=== PATIENT | male | born 1960 | race African-American/Black ===

== ENCOUNTER 2016-09-16 15:58 | Emergency (ER) | payer OTHER ==
[~2016-09-16] VITALS: Ht 175.3 cm; Wt 87.0 kg
[~2016-09-16 15:58] MED LIST: LISI-661 PO; METF500T4 PO; TAMS0.4C32 PO
[2016-09-16 16:37] LABS: GLUCOSE,POINT OF CARE 116 MG/DL (70-110)
[2016-09-16 18:55] VITALS: BP 148/84
[2016-09-16] MEDS ORDERED: IBUPROFEN 800 MG TABLET PO ONE (19:00)
== END 2016-09-16 20:00 | disposition home or self-care (01) ==
LOC: EMS 16:00
DX: R35.0 Frequency of micturition (principal); R52 Pain, unspecified; E11.9 Type 2 diabetes mellitus without complications; I10 Essential (primary) hypertension
CPT/HCPCS: 82962; 99283

== ENCOUNTER 2017-02-03 14:07 | Emergency (ER) | payer OTHER ==
[~2017-02-03] VITALS: Ht 175.3 cm; Wt 87.7 kg
[2017-02-03 14:17] LABS: GLUCOSE,POINT OF CARE 177 MG/DL (70-110)
[2017-02-03 14:52] LABS: APPEARANCE,URINE CLEAR (CLEAR); GLUCOSE, URINE (UA) NEGATIVE (NEGATIVE); KETONES,URINE NEGATIVE (NEGATIVE); LEUKOCYTE ESTERASE ,URINE NEGATIVE (NEGATIVE); OCCULT BLOOD,URINE NEGATIVE (NEGATIVE); PROTEIN,URINE NEGATIVE (NEGATIVE)
[2017-02-03 14:53] LABS: ADD UA MICROSCOPIC NO
[2017-02-03 16:18] VITALS: BP 134/84
== END 2017-02-03 16:19 | disposition home or self-care (01) ==
LOC: EMS 14:08
DX: R30.0 Dysuria (principal); R35.0 Frequency of micturition; I10 Essential (primary) hypertension; E11.9 Type 2 diabetes mellitus without complications
CPT/HCPCS: 82962; 99283

== ENCOUNTER 2017-06-10 13:58 | Emergency (ER) | payer OTHER ==
[~2017-06-10] VITALS: Ht 175.3 cm; Wt 88.6 kg
[~2017-06-10 13:58] MED LIST changes: -LISI-661 PO; -TAMS0.4C32 PO
[2017-06-10 14:33] LABS: GLUCOSE,POINT OF CARE 81 MG/DL (70-110)
[2017-06-10 16:31] LABS: APPEARANCE,URINE CLEAR (CLEAR); GLUCOSE, URINE (UA) NEGATIVE (NEGATIVE); KETONES,URINE NEGATIVE (NEGATIVE); LEUKOCYTE ESTERASE ,URINE NEGATIVE (NEGATIVE); OCCULT BLOOD,URINE NEGATIVE (NEGATIVE); PH,URINE 6.5 (5.0-8.0); PROTEIN,URINE NEGATIVE (NEGATIVE)
[2017-06-10 16:41] LABS: SQUAMOUS EPITHELIAL CELL,UR Few /LPF (None Seen)
[2017-06-10 16:42] LABS: RBC,URINE 0-2 /HPF (0-2); WBC,URINE 0-2 /HPF (0-5)
[2017-06-10 18:08] VITALS: BP 141/81
== END 2017-06-10 18:13 | disposition home or self-care (01) ==
LOC: EMS 13:58
DX: R10.30 Lower abdominal pain, unspecified (principal); R33.8 Other retention of urine; E11.9 Type 2 diabetes mellitus without complications; I10 Essential (primary) hypertension; N40.1 Benign prostatic hyperplasia with lower urinary tract symptoms
CPT/HCPCS: 82962; 99283

== ENCOUNTER 2017-09-01 17:14 | Emergency (ER) | payer OTHER ==
[~2017-09-01] VITALS: Ht 175.3 cm; Wt 86.4 kg
[2017-09-01] MEDS ORDERED: IBUP-2071 PO (17:24)
[2017-09-01 17:32] LABS: GLUCOSE,POINT OF CARE 107 MG/DL (70-110)
[2017-09-01 18:46] LABS: INFLUENZA TYPE A NEGATIVE FOR TYPE A (NEGATIVE); INFLUENZA TYPE B NEGATIVE FOR TYPE B (NEGATIVE)
[2017-09-01 20:08] LABS: GLUCOSE,POINT OF CARE 113 MG/DL (70-110)
[2017-09-01] MEDS ORDERED: ALBUTEROL SULFATE HFA 90 MCG/PUFF 8 GM INHALER IH ONE (20:15)
[2017-09-01 20:18] VITALS: BP 114/69
== END 2017-09-01 20:47 | disposition home or self-care (01) ==
LOC: EMS 17:16
DX: R05 Cough (principal); R51 Headache; F17.210 Nicotine dependence, cigarettes, uncomplicated; E11.9 Type 2 diabetes mellitus without complications; I10 Essential (primary) hypertension; F12.90 Cannabis use, unspecified, uncomplicated; Z76.0 Encounter for issue of repeat prescription
CPT/HCPCS: 71046; 82962; 87804; 94640; 99285; 99406; J3535

== ENCOUNTER 2017-11-28 17:13 | Emergency (ER) | payer OTHER ==
[~2017-11-28] VITALS: Ht 175.3 cm; Wt 87.7 kg
[~2017-11-28 17:13] MED LIST changes: +IBUP-2071 PO; -METF500T4 PO; +METF500T6 PO
[2017-11-28] MEDS ORDERED: LISI-661 PO (17:23)
[2017-11-28] MEDS ORDERED: SIMV-259 PO (17:23)
[2017-11-28] MEDS ORDERED: SULF1TAB42 PO (17:23)
[2017-11-28] MEDS ORDERED: TAMS0.4C32 PO (17:23)
[2017-11-28 17:27] LABS: GLUCOSE,POINT OF CARE 134 MG/DL (70-110)
[2017-11-28] MEDS ORDERED: MUPIROCIN CALCIUM 2% 15 GM CREAM TP ONE (18:45)
[2017-11-28] MEDS ORDERED: FLUCONAZOLE 150 MG TABLET PO ONE (18:45)
[2017-11-28 19:25] VITALS: BP 141/85
== END 2017-11-28 19:37 | disposition home or self-care (01) ==
LOC: EMS 17:14
DX: N48.1 Balanitis (principal); E11.9 Type 2 diabetes mellitus without complications; I10 Essential (primary) hypertension; G89.29 Other chronic pain; F17.210 Nicotine dependence, cigarettes, uncomplicated; F12.90 Cannabis use, unspecified, uncomplicated
CPT/HCPCS: 82962; 99283

== ENCOUNTER 2018-02-21 17:10 | Emergency (ER) | payer OTHER ==
[~2018-02-21] VITALS: Ht 175.3 cm; Wt 88.6 kg
[~2018-02-21 17:10] MED LIST changes: -IBUP-2071 PO; +LISI-661 PO; +SIMV-259 PO; +SULF1TAB42 PO; +TAMS0.4C32 PO
[2018-02-21 17:53] LABS: APPEARANCE,URINE CLEAR (CLEAR); BILIRUBIN,URINE NEGATIVE (NEGATIVE); GLUCOSE, URINE (UA) NEGATIVE (NEGATIVE); KETONES,URINE NEGATIVE (NEGATIVE); LEUKOCYTE ESTERASE ,URINE NEGATIVE (NEGATIVE); NITRATE,URINE NEGATIVE (NEGATIVE); OCCULT BLOOD,URINE NEGATIVE (NEGATIVE); PH,URINE 5.5 (5.0-8.0); PROTEIN,URINE NEGATIVE (NEGATIVE); UROBILINOGEN,URINE 0.2 mg/dL (<=1.0)
[2018-02-21] MEDS ORDERED: AZITHROMYCIN 250 MG TABLET PO ONE (18:30)
[2018-02-21] MEDS ORDERED: LIDOCAINE HCL/PF 1% 2 ML VIAL IM ONE (18:30)
[2018-02-21] MEDS ORDERED: ACETAMINOPHEN 500 MG TABLET PO ONE (18:30)
[2018-02-21] MEDS ORDERED: CefTRIAXone SODIUM 1 GM/VIAL IM ONE (18:30)
[2018-02-21 19:34] VITALS: BP 144/84
== END 2018-02-21 19:40 | disposition home or self-care (01) ==
LOC: EMS 17:12
DX: R35.0 Frequency of micturition (principal); R30.0 Dysuria; E11.9 Type 2 diabetes mellitus without complications; I10 Essential (primary) hypertension; F12.90 Cannabis use, unspecified, uncomplicated; G89.29 Other chronic pain; F17.210 Nicotine dependence, cigarettes, uncomplicated
CPT/HCPCS: 81003; 96372; 99283; 99406; J0696; J3490

== ENCOUNTER 2018-10-15 19:41 | Emergency (ER) | payer SELFPAY ==
[~2018-10-15] VITALS: Ht 170.2 cm; Wt 90.9 kg
[~2018-10-15 19:41] MED LIST changes: +METF-960 PO; -METF500T6 PO
[2018-10-15] MEDS ORDERED: ASPI-1182 PO (20:01)
[2018-10-15 20:08] LABS: GLUCOSE,POINT OF CARE 94 MG/DL (70-110)
[2018-10-15 21:14] LABS: APPEARANCE,URINE CLEAR (CLEAR); BILIRUBIN,URINE NEGATIVE (NEGATIVE); GLUCOSE, URINE (UA) NEGATIVE (NEGATIVE); KETONES,URINE NEGATIVE (NEGATIVE); LEUKOCYTE ESTERASE ,URINE NEGATIVE (NEGATIVE); NITRATE,URINE NEGATIVE (NEGATIVE); OCCULT BLOOD,URINE NEGATIVE (NEGATIVE); PROTEIN,URINE NEGATIVE (NEGATIVE)
[2018-10-15 21:18] LABS: BACTERIA,URINE None Seen /HPF (None Seen); RBC,URINE 0-2 /HPF (0-2); SQUAMOUS EPITHELIAL CELL,UR Rare /LPF (None Seen); WBC,URINE 0-2 /HPF (0-5)
[2018-10-15 22:00] VITALS: BP 131/77
== END 2018-10-15 22:31 | disposition home or self-care (01) ==
LOC: EMS 19:54
DX: R35.0 Frequency of micturition (principal); I10 Essential (primary) hypertension; E11.9 Type 2 diabetes mellitus without complications; F12.90 Cannabis use, unspecified, uncomplicated; F17.210 Nicotine dependence, cigarettes, uncomplicated; Z79.84 Long term (current) use of oral hypoglycemic drugs; Z79.82 Long term (current) use of aspirin

== ENCOUNTER 2018-10-20 20:49 | Emergency (ER) | payer SELFPAY ==
[~2018-10-20] VITALS: Ht 170.2 cm; Wt 89.1 kg
[~2018-10-20 20:49] MED LIST changes: +ASPI-1182 PO; -SULF1TAB42 PO
[2018-10-20 21:19] LABS: GLUCOSE,POINT OF CARE 173 MG/DL (70-110)
[2018-10-20 23:29] LABS: APPEARANCE,URINE CLEAR (CLEAR); BILIRUBIN,URINE NEGATIVE (NEGATIVE); GLUCOSE, URINE (UA) NEGATIVE (NEGATIVE); KETONES,URINE NEGATIVE (NEGATIVE); LEUKOCYTE ESTERASE ,URINE NEGATIVE (NEGATIVE); NITRATE,URINE NEGATIVE (NEGATIVE); OCCULT BLOOD,URINE TRACE (NEGATIVE); PH,URINE 5.5 (5.0-8.0); PROTEIN,URINE NEGATIVE (NEGATIVE); UROBILINOGEN,URINE 0.2 mg/dL (<=1.0)
[2018-10-20 23:43] LABS: BACTERIA,URINE Rare /HPF (None Seen); SQUAMOUS EPITHELIAL CELL,UR Rare /LPF (None Seen); WBC,URINE 0-2 /HPF (0-5)
[2018-10-21 00:31] VITALS: BP 119/75
== END 2018-10-21 01:00 | disposition home or self-care (01) ==
LOC: EMS 20:51
DX: N40.1 Benign prostatic hyperplasia with lower urinary tract symptoms (principal); R33.8 Other retention of urine; N13.8 Other obstructive and reflux uropathy; E11.9 Type 2 diabetes mellitus without complications; I10 Essential (primary) hypertension; F17.210 Nicotine dependence, cigarettes, uncomplicated; F12.90 Cannabis use, unspecified, uncomplicated; Z79.84 Long term (current) use of oral hypoglycemic drugs; Z79.899 Other long term (current) drug therapy
CPT/HCPCS: 51702; 99406

== ENCOUNTER 2019-03-31 20:40 | Emergency (ER) | payer MEDICAID ==
[~2019-03-31] VITALS: Ht 175.3 cm; Wt 89.1 kg
[2019-03-31 21:38] LABS: GLUCOSE,POINT OF CARE 282 MG/DL (70-110)
[2019-03-31 21:49] LABS: BASOPHILS % (AUTO) 0.5 % (0.0-2.0); EOSINOPHILS % (AUTO) 3.2 % (1.0-6.0); HEMATOCRIT 43.9 % (41-53); HEMOGLOBIN 13.8 g/dL (13.5-17.5); LYMPHOCYTES % (AUTO) 33.5 % (22.0-44.0); MEAN CORPUSCULAR HEMOGLOBIN 27.7 pg (26.0-34.0); MEAN CORPUSCULAR HGB CONC 31.5 G/dL (31.0-37.0); MEAN CORPUSCULAR VOLUME 88 fL (80-100); MONOCYTES # (AUTO) 0.6 K/uL (0.1-1.0); MONOCYTES % (AUTO) 10.7 % (2.0-9.0); NEUTROPHILS # (AUTO) 3.1 K/uL (1.8-7.7); NEUTROPHILS % (AUTO) 52.1 % (40.0-70.0); PLATELET COUNT (AUTO) 210 K/uL (150-450); RED BLOOD CELL COUNT(AUTO) 4.98 MIL/uL (4.50-5.90); RED CELL DISTRIBUTION WIDTH 14.1 % (11.5-14.5)
[2019-03-31 22:13] LABS: ANION GAP 8 mmol/L (8-16); CALCIUM, TOTAL 9.4 mg/dL (8.8-10.5); CARBON DIOXIDE 25 mmol/L (22-29); CHLORIDE 104 mmol/L (98-107); CREATININE 0.92 mg/dL (0.60-1.30); GLOMERULAR FILTR. RATE CALC > 60 mL/min (>60); GLUCOSE,RANDOM 284 mg/dL (70-110); POTASSIUM 3.8 mmol/L (3.5-5.1); SODIUM SERUM 137 mmol/L (136-145); UREA NITROGEN, BLOOD 16 mg/dL (7-18)
[2019-03-31 22:15] LABS: LACTIC ACID 1.9 mmol/L (0.4-2.0)
[2019-03-31 22:20] LABS: ALANINE AMINOTRANSFERASE 34 U/L (12-78); ALBUMIN 3.5 g/dL (3.4-5.0); ALKALINE PHOSPHATASE 84 U/L (46-116); ASPARTATE AMINOTRANSFERASE 23 U/L (15-37); BILIRUBIN,TOTAL 0.2 mg/dL (0.1-1.0); LIPASE 511 U/L (73-393); TOTAL PROTEIN, SERUM 6.6 g/dL (6.4-8.2)
[2019-04-01] MEDS ORDERED: IOVERSOL 350 MG/ML 100 ML VIAL ONE (02:47)
[2019-04-01] MEDS: BARIUM SULFATE 0.1% SUSPENSION 450 ML BOTTLE PO ONE (02:51)
[2019-04-01] MEDS: KETOROLAC TROMETHAMINE 30 MG/ML VIAL IVP ONE (02:51)
[2019-04-01] MEDS: ONDANSETRON HCL 4 MG/2 ML VIAL IVP ONE (02:51)
[2019-04-01] MEDS: METHOCARBAMOL 100 MG/ML 10 ML VIAL IVP ONE (02:52)
[2019-04-01 03:06] LABS: APPEARANCE,URINE CLEAR (CLEAR); BILIRUBIN,URINE NEGATIVE (NEGATIVE); GLUCOSE, URINE (UA) 250 mg/dL (NEGATIVE); KETONES,URINE NEGATIVE (NEGATIVE); LEUKOCYTE ESTERASE ,URINE SMALL (NEGATIVE); NITRATE,URINE NEGATIVE (NEGATIVE); OCCULT BLOOD,URINE NEGATIVE (NEGATIVE); PH,URINE 5.5 (5.0-8.0); PROTEIN,URINE NEGATIVE (NEGATIVE); UROBILINOGEN,URINE 0.2 mg/dL (<=1.0)
[2019-04-01 03:13] LABS: MUCUS,URINE Moderate LPF (None Seen); SQUAMOUS EPITHELIAL CELL,UR Many /LPF (None Seen)
[2019-04-01 03:14] LABS: BACTERIA,URINE Few /HPF (None Seen); CALCIUM OXALATE CRYSTALS,UR Few /LPF (None Seen); RBC,URINE 0-2 /HPF (0-2)
[2019-04-01 04:33] VITALS: BP 152/92
== END 2019-04-01 04:50 | disposition home or self-care (01) ==
LOC: EMS 20:42
DX: N39.0 Urinary tract infection, site not specified (principal); E11.65 Type 2 diabetes mellitus with hyperglycemia; G89.29 Other chronic pain; I10 Essential (primary) hypertension; F17.210 Nicotine dependence, cigarettes, uncomplicated; F12.90 Cannabis use, unspecified, uncomplicated; Z79.899 Other long term (current) drug therapy; Z79.84 Long term (current) use of oral hypoglycemic drugs
CPT/HCPCS: 36415; 71045; 74177; 80053; 81001; 82962; 83605; 83690; 84484; 85025; 87086; 93005; 96374; 96375; 99284; G0480; J1885; J2405; J2800; Q9967

== ENCOUNTER 2020-03-14 15:14 | Emergency (ER) | payer MEDICAID ==
[~2020-03-14] VITALS: Ht 175.3 cm; Wt 89.1 kg
[~2020-03-14 15:14] MED LIST changes: +ASPI-1111 PO; -ASPI-1182 PO; +TAMS-13 PO; -TAMS0.4C32 PO
[2020-03-14 16:02] LABS: APPEARANCE,URINE CLEAR (CLEAR); BILIRUBIN,URINE NEGATIVE (NEGATIVE); GLUCOSE, URINE (UA) NEGATIVE (NEGATIVE); KETONES,URINE NEGATIVE (NEGATIVE); LEUKOCYTE ESTERASE ,URINE MODERATE (NEGATIVE); NITRATE,URINE NEGATIVE (NEGATIVE); OCCULT BLOOD,URINE NEGATIVE (NEGATIVE); PROTEIN,URINE NEGATIVE (NEGATIVE); UROBILINOGEN,URINE 0.2 mg/dL (<=1.0)
[2020-03-14 16:15] LABS: RBC,URINE None Seen /HPF (0-2)
[2020-03-14 16:16] LABS: BACTERIA,URINE Moderate /HPF (None Seen)
[2020-03-14 16:28] LABS: BASOPHILS % (AUTO) 0.7 % (0.0-2.0); EOSINOPHILS % (AUTO) 4.8 % (1.0-6.0); HEMATOCRIT 44.6 % (41-53); HEMOGLOBIN 14.1 g/dL (13.5-17.5); LYMPHOCYTES # (AUTO) 1.7 K/uL (1.0-4.8); LYMPHOCYTES % (AUTO) 32.1 % (22.0-44.0); MEAN CORPUSCULAR HEMOGLOBIN 27.5 pg (26.0-34.0); MEAN CORPUSCULAR HGB CONC 31.6 G/dL (31.0-37.0); MEAN CORPUSCULAR VOLUME 87 fL (80-100); MONOCYTES # (AUTO) 0.6 K/uL (0.1-1.0); MONOCYTES % (AUTO) 11.4 % (2.0-9.0); NEUTROPHILS # (AUTO) 2.7 K/uL (1.8-7.7); PLATELET COUNT (AUTO) 211 K/uL (150-450); RED BLOOD CELL COUNT(AUTO) 5.12 MIL/uL (4.50-5.90); RED CELL DISTRIBUTION WIDTH 14.2 % (11.5-14.5)
[2020-03-14 16:40] LABS: ANION GAP 9 mmol/L (8-16); CALCIUM, TOTAL 8.9 mg/dL (8.8-10.5); CARBON DIOXIDE 28 mmol/L (22-29); CHLORIDE 103 mmol/L (98-107); CREATININE 0.92 mg/dL (0.60-1.30); GLOMERULAR FILTR. RATE CALC > 60 mL/min (>60); GLUCOSE,RANDOM 95 mg/dL (70-110); POTASSIUM 3.7 mmol/L (3.5-5.1); SODIUM SERUM 140 mmol/L (136-145); UREA NITROGEN, BLOOD 19 mg/dL (7-18)
[2020-03-14 16:47] LABS: ALANINE AMINOTRANSFERASE 26 U/L (12-78); ALBUMIN 3.6 g/dL (3.4-5.0); ALKALINE PHOSPHATASE 74 U/L (46-116); ASPARTATE AMINOTRANSFERASE 18 U/L (15-37); BILIRUBIN,TOTAL 0.2 mg/dL (0.1-1.0); LIPASE 1312 U/L (73-393); TOTAL PROTEIN, SERUM 7.1 g/dL (6.4-8.2)
[2020-03-14] MEDS ORDERED: KETOROLAC TROMETHAMINE 30 MG/ML VIAL IVP ONE (17:45)
[2020-03-14] MEDS ORDERED: SODIUM CHLORIDE 0.9% 1,000 ML IV ONE (17:45)
[2020-03-14] MEDS ORDERED: SODIUM CHLORIDE 0.9% 100 ML ONE (18:01)
[2020-03-14] MEDS ORDERED: IOVERSOL 350 MG/ML 100 ML VIAL ONE (18:02)
[2020-03-14 18:51] VITALS: BP 130/70
[2020-03-14 19:27] LABS: GLUCOSE,POINT OF CARE 94 MG/DL (70-110)
== END 2020-03-14 19:23 | disposition home or self-care (01) ==
LOC: EMS 15:15
DX: N39.0 Urinary tract infection, site not specified (principal); F17.210 Nicotine dependence, cigarettes, uncomplicated; E11.9 Type 2 diabetes mellitus without complications; I10 Essential (primary) hypertension; Z79.82 Long term (current) use of aspirin; Z79.899 Other long term (current) drug therapy; Z79.84 Long term (current) use of oral hypoglycemic drugs
CPT/HCPCS: 36415; 74177; 80053; 81001; 82962; 83690; 85025; 87077; 87086; 96361; 96374; 99285; 99406; J1885; J7030; J7050; Q9967

== ENCOUNTER 2020-11-16 19:04 | Emergency (ER) | payer MEDICAID ==
[~2020-11-16] VITALS: Ht 175.3 cm; Wt 85.5 kg
[~2020-11-16 19:04] MED LIST changes: -ASPI-1111 PO; +ASPI-1444 PO; -LISI-661 PO; +LISI-893 PO
[2020-11-16] MEDS ORDERED: AZITHROMYCIN 500 MG TABLET PO ONE (20:15)
[2020-11-16] MEDS ORDERED: CefTRIAXone SODIUM 1 GM/VIAL IM ONE (20:15)
[2020-11-16] MEDS ORDERED: LIDOCAINE/PF 1% 2 ML VIAL IM ONE (20:15)
[2020-11-16 21:05] LABS: APPEARANCE,URINE CLEAR (CLEAR); BILIRUBIN,URINE NEGATIVE (NEGATIVE); GLUCOSE, URINE (UA) NEGATIVE (NEGATIVE); KETONES,URINE NEGATIVE (NEGATIVE); LEUKOCYTE ESTERASE ,URINE MODERATE (NEGATIVE); NITRATE,URINE NEGATIVE (NEGATIVE); OCCULT BLOOD,URINE SMALL (NEGATIVE); PH,URINE 6.5 (5.0-8.0); PROTEIN,URINE NEGATIVE (NEGATIVE); UROBILINOGEN,URINE 0.2 mg/dL (<=1.0)
[2020-11-16 21:15] LABS: BACTERIA,URINE Moderate /HPF (None Seen); SQUAMOUS EPITHELIAL CELL,UR Few /LPF (None Seen)
[2020-11-16 21:27] VITALS: BP 141/80
== END 2020-11-16 21:28 | disposition home or self-care (01) ==
LOC: EMS 19:13
DX: N39.0 Urinary tract infection, site not specified (principal); F17.210 Nicotine dependence, cigarettes, uncomplicated; F12.90 Cannabis use, unspecified, uncomplicated; E11.9 Type 2 diabetes mellitus without complications; E78.00 Pure hypercholesterolemia, unspecified; I10 Essential (primary) hypertension; Z79.82 Long term (current) use of aspirin; Z79.899 Other long term (current) drug therapy
CPT/HCPCS: 81001; 82962; 87077; 87086; 87186; 87491; 87591; 96372; 99283; A9575; J0696; J3490

== ENCOUNTER 2021-06-13 14:01 | Emergency (ER) | payer MEDICAID ==
[~2021-06-13] VITALS: Ht 175.3 cm; Wt 79.5 kg
[~2021-06-13 14:01] MED LIST changes: +METF-1211 PO; -METF-960 PO
[2021-06-13 14:44] LABS: APPEARANCE,URINE CLEAR (CLEAR); BILIRUBIN,URINE NEGATIVE (NEGATIVE); GLUCOSE, URINE (UA) NEGATIVE (NEGATIVE); KETONES,URINE NEGATIVE (NEGATIVE); LEUKOCYTE ESTERASE ,URINE TRACE (NEGATIVE); NITRATE,URINE NEGATIVE (NEGATIVE); OCCULT BLOOD,URINE NEGATIVE (NEGATIVE); PH,URINE 6.5 (5.0-8.0); PROTEIN,URINE NEGATIVE (NEGATIVE); UROBILINOGEN,URINE 0.2 mg/dL (<=1.0)
[2021-06-13 14:55] LABS: BACTERIA,URINE None Seen /HPF (None Seen); RBC,URINE None Seen /HPF (0-2); WBC,URINE 0-2 /HPF (0-5)
[2021-06-13] MEDS: LIDOCAINE/PF 1% 2 ML VIAL IM ONE (15:02)
[2021-06-13] MEDS: AZITHROMYCIN 500 MG TABLET PO ONE (15:02)
[2021-06-13] MEDS: CefTRIAXone SODIUM 1 GM/VIAL IM ONE (15:03)
[2021-06-13 15:28] VITALS: BP 146/86
== END 2021-06-13 16:59 | disposition home or self-care (01) ==
LOC: EMS 14:04
DX: N39.0 Urinary tract infection, site not specified (principal); E11.9 Type 2 diabetes mellitus without complications; I10 Essential (primary) hypertension; E78.00 Pure hypercholesterolemia, unspecified; G89.29 Other chronic pain; M54.9 Dorsalgia, unspecified; N40.0 Benign prostatic hyperplasia without lower urinary tract symptoms
CPT/HCPCS: 81001; 82962; 96372; 99283; J0696; J3490; Q9967

== ENCOUNTER 2022-04-22 17:23 | Emergency (ER) | payer MEDICAID ==
[~2022-04-22] VITALS: Ht 175.3 cm; Wt 89.1 kg
[2022-04-22] MEDS ORDERED: LOSA-381 PO (17:36)
[2022-04-22 18:37] LABS: BASOPHILS % (AUTO) 0.6 % (0.0-2.0); EOSINOPHILS % (AUTO) 6.2 % (1.0-6.0); HEMATOCRIT 40.5 % (41-53); HEMOGLOBIN 13.1 g/dL (13.5-17.5); LYMPHOCYTES # (AUTO) 2.2 K/uL (1.0-4.8); LYMPHOCYTES % (AUTO) 44.9 % (22.0-44.0); MEAN CORPUSCULAR HEMOGLOBIN 27.6 pg (26.0-34.0); MEAN CORPUSCULAR HGB CONC 32.5 G/dL (31.0-37.0); MEAN CORPUSCULAR VOLUME 85 fL (80-100); MONOCYTES # (AUTO) 0.6 K/uL (0.1-1.0); MONOCYTES % (AUTO) 11.3 % (2.0-9.0); NEUTROPHILS # (AUTO) 1.8 K/uL (1.8-7.7); PLATELET COUNT (AUTO) 240 K/uL (150-450); RED BLOOD CELL COUNT(AUTO) 4.77 MIL/uL (4.50-5.90)
[2022-04-22 18:45] LABS: ANION GAP 6 mmol/L (8-16); CARBON DIOXIDE 28 mmol/L (22-29); CHLORIDE 104 mmol/L (98-107); CREATININE 0.89 mg/dL (0.60-1.30); GLUCOSE,RANDOM 164 mg/dL (70-110); SODIUM SERUM 138 mmol/L (136-145); UREA NITROGEN, BLOOD 14 mg/dL (7-18)
[2022-04-22 18:47] LABS: GLOMERULAR FILTR. RATE CALC > 60 mL/min (>60)
[2022-04-22 18:55] LABS: ALANINE AMINOTRANSFERASE 21 U/L (12-78); ALBUMIN 3.7 g/dL (3.4-5.0); ALKALINE PHOSPHATASE 102 U/L (46-116); ASPARTATE AMINOTRANSFERASE 17 U/L (15-37); BILIRUBIN,TOTAL 0.2 mg/dL (0.1-1.0); LIPASE 401 U/L (73-393); TOTAL PROTEIN, SERUM 7.3 g/dL (6.4-8.2)
[2022-04-22 18:59] LABS: APPEARANCE,URINE CLEAR (CLEAR); BILIRUBIN,URINE NEGATIVE (NEGATIVE); GLUCOSE, URINE (UA) NEGATIVE (NEGATIVE); KETONES,URINE NEGATIVE (NEGATIVE); LEUKOCYTE ESTERASE ,URINE NEGATIVE (NEGATIVE); NITRATE,URINE NEGATIVE (NEGATIVE); OCCULT BLOOD,URINE NEGATIVE (NEGATIVE); PROTEIN,URINE NEGATIVE (NEGATIVE); SPECIFIC GRAVITIY, URINE 1.019 (1.003-1.030); UROBILINOGEN,URINE <=1.0 mg/dL (<=1.0)
[2022-04-22 19:08] LABS: BACTERIA,URINE None Seen /HPF (None Seen); RBC,URINE 0-2 /HPF (0-2); SQUAMOUS EPITHELIAL CELL,UR Rare /LPF (None Seen); WBC,URINE 0-2 /HPF (0-5)
[2022-04-22] MEDS ORDERED: IOHEXOL 350 MG/ML 100 ML VIAL ONE (19:40)
[2022-04-22] MEDS ORDERED: SODIUM CHLORIDE 0.9% 100 ML ONE (19:40)
[2022-04-22] MEDS ORDERED: BARIUM SULFATE 0.1% SUSPENSION 450 ML BOTTLE PO ONE (19:45)
[2022-04-22 21:30] VITALS: BP 143/74
[2022-04-22] MEDS ORDERED: POLY238P PO (22:40)
== END 2022-04-23 00:56 | disposition home or self-care (01) ==
LOC: EMS 17:24
DX: R10.9 Unspecified abdominal pain (principal); K59.00 Constipation, unspecified; E11.9 Type 2 diabetes mellitus without complications; E78.00 Pure hypercholesterolemia, unspecified; I10 Essential (primary) hypertension; N40.0 Benign prostatic hyperplasia without lower urinary tract symptoms; F17.210 Nicotine dependence, cigarettes, uncomplicated; F12.90 Cannabis use, unspecified, uncomplicated; Z87.39 Personal history of other diseases of the musculoskeletal system and connective tissue; Z98.890 Other specified postprocedural states
CPT/HCPCS: 99285; 74177; 71045; 80053; 81001; 83690; 84484; 85025; 36415; 93005; Q9967; J7050

== ENCOUNTER 2024-10-13 14:39 | Emergency (ER) | payer MEDICAID, MEDICARE, OTHER ==
[~2024-10-13] VITALS: Ht 175.3 cm; Wt 87.2 kg
[~2024-10-13 14:39] MED LIST changes: -LISI-893 PO; +LOSA-381 PO; +POLY238P PO; -TAMS-13 PO; +TAMS0.4C94 PO
[2024-10-13 14:42] VITALS: BP 135/73; PULSE 86; RESP 18; TEMP 96.6; O2SAT 99
[2024-10-13] MEDS ORDERED: TAMS0.4C94 PO (14:59)
[2024-10-13] MEDS ORDERED: METF-1211 PO (14:59)
[2024-10-13 15:00] LABS: GLUCOMETER DEV NAME(LOC) ERT.6; GLUCOSE,POINT OF CARE 141 MG/DL (70-110)
[2024-10-13] MEDS ORDERED: LOSA-382 PO (15:03)
== END 2024-10-13 15:49 | disposition home or self-care (01) ==
LOC: EMS 14:39
DX: I10 Essential (primary) hypertension (principal); Z76.0 Encounter for issue of repeat prescription; E11.9 Type 2 diabetes mellitus without complications; E78.00 Pure hypercholesterolemia, unspecified; F12.90 Cannabis use, unspecified, uncomplicated; F17.210 Nicotine dependence, cigarettes, uncomplicated; Z79.82 Long term (current) use of aspirin; Z79.84 Long term (current) use of oral hypoglycemic drugs; Z79.899 Other long term (current) drug therapy
CPT/HCPCS: 82962; 99282